=== PATIENT | female | born 1985 | race Caucasian/White ===

== ENCOUNTER 2019-02-24 00:21 | Inpatient (IN) ==
[2019-02-24] MEDS ORDERED: IOPAMIDOL 100 ML BOTTLE IV ONE (00:22)
[2019-02-24] MEDS ORDERED: 0.9 % SODIUM CHLORIDE 1,000 ML IV ONE ×2 (00:54→07:35)
[2019-02-24] MEDS ORDERED: ONDANSETRON 4 MG/2 ML VIAL IV ONE ×2 (00:54→02:11)
--- NOTE | 2019-02-24 00:57 | Emergency Department Note ---
Abdominal Pain HPI - General Chief Complaint: Abdominal Pain Stated Complaint: THinks has bowel obstruction Time Seen by Provider: 02/24/19 00:40 Source: patient Mode of arrival: ambulatory Limitations: no limitations - History of Present Illness HPI Narrative: 34-year-old female comes in for a 3-hour history of severe belly pain. She has a history of bowel obstructions and has an ileostomy pouch. Is been putting out liquid stool such that she had to empty it 3 times today. This feels like similar bowel obstruction she has had in the past. She has had multiple belly surgeries. No fever but significant nausea vomiting. She typically gets treated at [facility] where she lives; she is just here for a . She called up to attending physician of the surgical service hot stone setter there and had me talk to him on the cell phone-he verified that she does indeed get bowel obstructions. We briefly discussed initial work-up. Her regular surgeon is Dr. Duc Aden (sp?) - Related Data Allergies Allergy/AdvReac Type Severity Reaction Status Date / Time No Known Drug Allergies Allergy Verified 02/24/19 02:21 Review of Systems All systems ED: reviewed and negative except as stated. Abdominal Pain PMH - Past Medical History Attestation: Yes: The following information was validated with the patient. Medical history: Reports: other (small bowel obstructions, hirschsprung) Surgical history ED: Reports: colostomy, hysterectomy - Social History Smoking status: Never smoker Physical Exam Irritable and frustrated. Dry heaving here. Normocephalic atraumatic. Conjunctive are clear sclerae white nonicteric. No nasal discharge or congestion. Oropharynx with dry buccal mucosa. Neck is supple without lymphadenopathy or thyromegaly. Heart is regular rate and rhythm no murmur. Lungs are clear to auscultation bilaterally without wheezes rales rhonchi or respiratory distress. Abdomen is soft obese tender with scarring noted. Ileostomy bag with liquid stool in it. No pedal edema. +2 radial pulse. Alert oriented Limitations: no limitations Course Vital Signs Temperature 97.5 F 02/24/19 00:22 Pulse Rate 115 H 02/24/19 00:22 Respiratory Rate 14 02/24/19 00:22 Blood Pressure 129/87 02/24/19 00:22 Pulse Oximetry (%) 96 02/24/19 00:22 Temperature 97.5 F 02/24/19 00:22 Pulse Rate 115 H 02/24/19 00:22 Respiratory Rate 14 02/24/19 00:22 Blood Pressure 129/87 02/24/19 00:22 Pulse Oximetry (%) 96 02/24/19 00:22 Abdominal Pain - Lab Data Lab results reviewed: Yes I reviewed the patient's lab results. Result diagrams: 02/24/19 01:07 PST 02/24/19 01:07 PST Lab Results 02/24/19 02/24/19 02/24/19 Range/Units 01:07 PST 01:07 PST 01:07 PST WBC 14.9 H (4.5-11.0) K/mcL RBC 5.61 H (4.00-5.20) M/mcL Hgb 15.9 H (12.0-15.0) g/dL Hct 47.4 (36.0-48.0) % POC Hct 50.0 H (36.0-48.0) % MCV 84.4 (80.0-100.0) fL MCH 28.4 (26.0-34.0) pg MCHC 33.6 (31.0-36.0) g/dL RDW 13.3 (11.5-14.5) % Plt Count 285 (140-440) K/mcL MPV 9.3 (7.4-10.4) fL Gran % 85.2 H (38.0-78.0) % Lymph % (Auto) 10.0 L (15.5-49.0) % Harlan % (Auto) 3.7 (1.0-12.0) % Eos % (Auto) 1.0 (0.0-7.0) % Baso % (Auto) 0.1 (0.0-2.0) % Gran # 12.7 H (1.8-8.0) K/mcL Lymph # (Auto) 1.5 (1.5-4.8) K/mcL Harlan # (Auto) 0.6 (0.1-0.9) K/mcL Eos # (Auto) 0.2 (0.0-0.7) K/mcL Baso # (Auto) 0 (0.0-0.3) K/mcL VBG Lactic Acid 2.8 H (0.5-2.0) mmol/L POC Sodium 137 (133-145) mmol/L Sodium 139 (133-145) mmol/L POC Potassium 4.1 (3.3-5.1) mmol/L Potassium 4.2 (3.3-5.1) mmol/L POC Chloride 103 (96-108) mmol/L Chloride 97 (96-108) mmol/L Carbon Dioxide 19 L (22-30) mmol/L POC Total CO2 24 (22-30) mmol/L Anion Gap 23.0 H (8-16) POC BUN 23 H (6-20) mg/dl BUN 17 (6-20) mg/dl Creatinine 0.9 (0.6-1.1) mg/dl POC Creatinine 0.8 (0.6-1.1) mg/dl GFR Calculation 83 Glucose 106 H (70-105) mg/dL POC Glucose 105 (70-105) mg/dL Calcium 10.3 (8.6-10.4) mg/dl POC WB Ioniz Calcium 1.12 L (1.16-1.32) mmol/L Total Bilirubin 1.1 H (0.0-1.0) mg/dL AST 35 (0-37) U/l ALT 36 (0-40) U/l Alkaline Phosphatase 49 (39-117) U/L Total Protein 8.8 H (5.9-8.4) gm/dL Albumin 4.9 (3.2-5.2) gm/dL Globulin 3.9 H (2.2-3.7) gm/dL Albumin/Globulin Ratio 1.3 (1.0-2.3) Lipase 21 (7-60) U/L - Radiology Data Radiology results reviewed: Yes I reviewed the patient's radiology results. X-ray of the abdomen shows no air-fluid levels-collapsed bowel perhaps CT scan of the abdomen and pelvis shows low-grade Partial small bowel obstruction With dilated fluid-filled loops of small bowel-I discussed this with Dr. Jim Chamorro radiologist who also noted the patient has a possible ovarian mass as well Disposition Pt seen by [facility]ISTR[facility]/PA only: No Clinical Impression: Small bowel obstruction, Ovarian mass Summary: Likely small bowel obstruction she has had history of multiple of these. Treat her pain nausea start IV fluids. X-ray is unrevealing. Will order CT scan and start NG tube. She was feeling better after getting medicine in the NG tube CT scan of the abdomen and pelvis with contrast shows partial small bowel obstruction low-grade. She had been getting Dilaudid for pain but every time she got Dilaudid made her nausea worse. She previously had 2 doses of Zofran. We will give her Compazine I discussed her case with Dr. Kaveh Matthews who agreed to accept the patient for further care and evaluation when we have a bed Disposition: Xfer As Inpt ([facility]) Condition: Fair
[2019-02-24 01:14] LABS: POC Blood Urea Nitrogen 23 mg/dl (6-20); POC CO2 24 mmol/L (22-30); POC Calcium, Ionized 1.12 mmol/L (1.16-1.32); POC Chloride 103 mmol/L (96-108); POC Creatinine 0.8 mg/dl (0.6-1.1); POC Glucose, Random 105 mg/dL (70-105); POC Potassium 4.1 mmol/L (3.3-5.1); POC Sodium 137 mmol/L (133-145)
[2019-02-24] MEDS: HYDROmorphone 2 MG/ML VIAL IV PRN ×8 (01:29→23:40)
[2019-02-24 01:38] LABS: Basophils # (Auto) 0 K/mcL (0.0-0.3); Basophils % (Auto) 0.1 % (0.0-2.0); Eosinophils # (Auto) 0.2 K/mcL (0.0-0.7); Granulocytes % (Auto) 85.2 % (38.0-78.0); Hematocrit 47.4 % (36.0-48.0); Hemoglobin 15.9 g/dL (12.0-15.0); Lymphocytes # (Auto) 1.5 K/mcL (1.5-4.8); Mean Cell Volume 84.4 fL (80.0-100.0); Mean Corpuscular HGB Conc 33.6 g/dL (31.0-36.0); Mean Platelet Volume 9.3 fL (7.4-10.4); Monocytes # (Auto) 0.6 K/mcL (0.1-0.9); Monocytes % (Auto) 3.7 % (1.0-12.0); Platelet Count 285 K/mcL (140-440); RBC 5.61 M/mcL (4.00-5.20); Red Cell Distribution Width 13.3 % (11.5-14.5); WBC 14.9 K/mcL (4.5-11.0)
[2019-02-24 02:00] LABS: ALT/SGPT 36 U/l (0-40); AST/SGOT 35 U/l (0-37); Albumin 4.9 gm/dL (3.2-5.2); Albumin/Globulin Ratio 1.3 (1.0-2.3); Alkaline Phosphatase 49 U/L (39-117); Bilirubin,Total 1.1 mg/dL (0.0-1.0); Blood Urea Nitrogen 17 mg/dl (6-20); Calcium 10.3 mg/dl (8.6-10.4); Carbon Dioxide 19 mmol/L (22-30); Chloride 97 mmol/L (96-108); Globulin 3.9 gm/dL (2.2-3.7); Glomerular Filtration Rate 83; Glucose 106 mg/dL (70-105)
[2019-02-24] MEDS ORDERED: PROCHLORPERAZINE 10 MG/2 ML VIAL IV ONE (05:53)
--- NOTE | 2019-02-24 07:20 | XRay Report ---
CLINICAL INFORMATION: Abdominal pain. Patient states that she has a bowel obstruction TECHNIQUE: Supine and upright abdomen COMPARISON: Previous examination dated 06/23/2009 FINDINGS: There appears to be a left-sided stoma. Abdomen is essentially gasless. No distended gas-filled small bowel. No evidence for mechanical small bowel obstruction. There is no pneumoperitoneum. No biliary or portal venous gas. No pneumatosis. There are surgical clips in the right upper abdominal quadrant consistent with previous cholecystectomy IMPRESSION: 1. Gasless abdomen. No plain film evidence for mechanical small bowel obstruction 2. No acute or focal abnormality Interpreted and Authenticated by: Jim Chamorro 02/24/19
[2019-02-24] MEDS ORDERED: HYDROmorphone 2 MG/ML VIAL IV PRN (07:34)
[2019-02-24] MEDS ORDERED: METOCLOPRAMIDE 10 MG/2 ML VIAL IV ONE (07:34)
[2019-02-24] MEDS ORDERED: NALOXONE HCL 0.4 MG/ML VIAL IV PRN (07:35)
[2019-02-24] MEDS ORDERED: PROMETHAZINE 25 MG/ML VIAL IM PRN (07:35)
--- NOTE | 2019-02-24 07:51 | Cat Scan Report ---
CLINICAL INFORMATION: Previous surgery. The patient states that she has a bowel obstruction COMPARISON: Plain film examination dated 02/24/2019 TECHNIQUE: Axial images were obtained through the abdomen and pelvis. Sagittally and coronally reformatted images. 80 mL Isovue 370 injected intravenously. Oral contrast material was not administered FINDINGS: This patient has undergone previous colectomy and hysterectomy. Prior examinations are in [place] and not currently available. The reason for this patient's previous hysterectomy and colectomy are not known. This patient is only visiting this area Lung bases:Negative. No pulmonary parenchymal infiltrate or mass. There is no pleural fluid. No pericardial fluid Liver:Negative. No focal intrahepatic abnormality. Liver contour is smooth. There is no ascites Gallbladder, billary:Surgical clips in gallbladder fossa consistent with previous cholecystectomy. No dilated bile ducts Spleen:Negative. No splenomegaly. Normal enhancement of splenic and portal veins Pancreas:Negative. No pancreatic mass. No peripancreatic abnormality Adrenal glands:Negative Kidneys, ureters, bladder:Kidneys are negative. No hydronephrosis. No solid or cystic renal mass. There is no hydroureter. No obstructing or nonobstructing calculi. No bladder stones. Gastrointestinal:Previous colectomy. The reason for colectomy in this young patient is not known There is a left lower quadrant ostomy. Jejunum is mildly prominent and may be adherent to the anterior abdominal wall. There is no high-grade mechanical small bowel obstruction. Mild partial obstruction is possible. There is no closed-loop obstruction. No evidence for bowel ischemia.. There is an esophagogastric tube in the stomach Vascular:Normal abdominal aorta. No abdominal aortic aneurysm. Normal enhancement of superior mesenteric artery, celiac trunk, and inferior mesenteric artery Lymphatic:No retroperitoneal, para-aortic adenopathy. There is no pathologic mesenteric adenopathy. Small mesenteric lymph nodes are nonspecific Mesentery, peritoneum:No free intraperitoneal fluid. No intra-abdominal abscess. No pneumoperitoneum Reproductive:Previous hysterectomy. It is unknown whether this patient had an oophorectomy. There is a pelvic mass. This is predominantly cystic but is not a simple cyst. There are septations within this. This multicystic mass measures 7.0 x 7.5 x 5.5 cm. There is no free pelvic fluid. There is no pathologic adenopathy. This is probably of ovarian origin. Comparison with prior examinations is recommended. This may be a mucinous cystadenoma or adenocarcinoma. If this is a new lesion pelvic MRI scan may be helpful. It is not certain that this lesion is of ovarian origin. Postoperative septated seroma or lymphocele are possible Musculoskeletal:No lumbar compression fractures. Sacrum and pelvis are negative. No fracture. No lytic lesion. This examination was initially interpreted by [facility] IMPRESSION: 1. Previous colectomy. No high-grade mechanical small bowel obstruction. Mild partial obstruction is possible. There is small bowel which is adherent to the anterior abdominal wall and this may be secondary to postoperative adhesions 2. Septated cystic pelvic mass. This may be of ovarian origin. Comparison with previous examinations and patient's history are necessary. MRI scan may be performed as above The exam was performed using radiation dose optimization techniques including, but not limited to, automated exposure control, adjustment of the mA and/or kV according to patient size and use of iterative reconstruction technique. Interpreted and Authenticated by: Jim Chamorro 02/24/19
[2019-02-24 11:03] LABS: Appearance,Urine CLEAR; Bacteria,Urine 0 /hpf (0); Bilirubin,Urine NEG (NEG); Color,Urine YELLOW; Glucose,Urine (UA) NEGATIVE (NEG); Ketones,Urine NEG (NEG); Leukocyte Esterase,Urine NEG /uL (NEG); Mucus,Urine FEW /hpf (0); Nitrate,Urine NEG (NEG); Protein,Urine 30 mg/dL (NEG); Specific Gravity,Urine > 1.060 (1.000-1.035); Urine Amorphous Crystals FEW /hpf (0); Urine Blood 0.2 mg/dL (<0.03); Urine RBC 11 /hpf (0-1); Urine Squamous Epithelial Cell 3 /hpf (0-4); Urine WBC 5 /hpf (0-4); Urobilinogen,Urine NEG (NEG)
[2019-02-24 11:04] LABS: Culture Indicated,Urine NO
[2019-02-24] MEDS: 0.9 % SODIUM CHLORIDE 1,000 ML IV SCH ×2 (11:37→21:30)
[2019-02-24] MEDS: ONDANSETRON 4 MG/2 ML VIAL IV PRN ×3 (11:52→21:25)
[2019-02-24] MEDS: diphenhydrAMINE 50 MG/ML VIAL IV PRN ×2 (12:47→18:48)
[2019-02-24] MEDS ORDERED: ALPRAZolam 0.5 MG TABLET PO PRN (12:53)
[2019-02-24] MEDS ORDERED: ACETAMINOPHEN 1,000 MG in PREMIX 1 BAG IV SCH (13:00)
--- NOTE | 2019-02-24 13:03 | General Surg History&Physical ---
History of Present Illness Patient information: Note initiated : 02/24/19 at 1:01 pm Service Date, if different from initiated Date: [] Patient: Marilu Jo 34 y/o F admitted on 02/24/19 for THinks has bowel obstruction. Chief Complaint: [] HPI: Ms. Jo is a 34 year old Fadmitted for probable adynamic ileus. 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 Since that time she's had multiple operations. She subsequently had total colectomy. She now has a permanent left lower quadrant ileostomy. She gives a history of having upper abdominal pain with nausea and vomiting multiple times yesterday. She had increased abdominal pressure. Because of this she came to the emergency room. She states that her stoma has continued to work and she has had watery output during this time. She had laparotomy 8 months ago at which time she had a 4 hour lysis. According to her history. She has what sounds like a hostile abdomen. She has a surgeon in [place], who follows her regularly. Patient has been admitted with nasogastric tube. Review of her CT shows slight dilation of mid small bowel but no evidence of complete obstruction. Review of Systems All systems PM: reviewed and no additional remarkable complaints except as stated (negative except as noted above in HPI) Past History Past medical history: History of Hirschsprung's disease Past surgical history: Status post abdominal hysterectomy and right salpingo-oophorectomy. Status post total colectomy with ileostomy Past family history: Mother age 52, without illness. Father age 55 of illness. 4 siblings, all healthy except one sibling with seizure disorder Past social history: Denies tobacco use Denies alcohol use. Denies drug use Medications and Allergies Allergies Allergy/AdvReac Type Severity Reaction Status Date / Time No Known Drug Allergies Allergy Verified 02/24/19 02:21 Exam Temp Pulse Resp BP Pulse Ox 97.5 F 109 H 18 118/70 95 02/24/19 11:55 02/24/19 11:55 02/24/19 11:55 02/24/19 11:55 02/24/19 11:55 - General physical appearance well developed, well nourished, no distress, moderate pain, obese - Eyes PERRL, normal ocular movement - ENT normal pinna, normal nares, normal mucosa, no hearing loss, no congestion - Head Head exam IM: Present: atraumatic, normocephalic - Neck no masses, no bruits, trachea midline, no lymphadenopathy, no venous distension - Cardiovascular Cardiovascular exam IM: Present: normal rate and rhythm, RRR, +S1. Absent: JVD, tachycardia - Respiratory normal expansion, normal respiratory effort, clear to auscultation - Abdomen Abdomen: Present: soft, non tender, bowel sounds. Absent: distended Hernia: Present: none - Genitourinary Present: normal external genitalia - Integumentary Present: no rash, no growths, no abnormal pigmentation - Neurologic Present: normal coordination, normal sensation, other (anxiety related to unresolved grief) - Musculoskeletal Present: normal gait, normal posture - Psychiatric Present: oriented to time, oriented to person, oriented to place, speech is normal, memory intact Assessment and Plan (1) Partial small bowel obstruction Continue nasogastric decompression for today. Start metoclopramide every 6 hours Follow-up abdominal x-ray the morning Status: Acute (2) Adjustment reaction with anxiety and depression Alprazolam 1 mg every 8 hours as needed Status: Acute
[2019-02-24] MEDS: ACETAMINOPHEN 1,000 MG/100 ML BOTTLE IV SCH ×2 (13:35→18:53)
[2019-02-24] MEDS: METOCLOPRAMIDE 10 MG/2 ML VIAL IV SCH ×2 (17:56→23:47)
[2019-02-25] MEDS: ACETAMINOPHEN 1,000 MG/100 ML BOTTLE IV SCH ×4 (00:41→19:37)
[2019-02-25] MEDS: diphenhydrAMINE 50 MG/ML VIAL IV PRN ×4 (00:44→19:35)
[2019-02-25] MEDS: HYDROmorphone 2 MG/ML VIAL IV PRN ×11 (02:27→23:44)
[2019-02-25] MEDS: ONDANSETRON 4 MG/2 ML VIAL IV PRN ×5 (05:03→21:43)
[2019-02-25] MEDS: METOCLOPRAMIDE 10 MG/2 ML VIAL IV SCH ×4 (06:14→23:33)
[2019-02-25 06:31] LABS: Basophils # (Auto) 0 K/mcL (0.0-0.3); Basophils % (Auto) 0.2 % (0.0-2.0); Eosinophils # (Auto) 0.1 K/mcL (0.0-0.7); Eosinophils % (Auto) 1.3 % (0.0-7.0); Granulocytes % (Auto) 73.3 % (38.0-78.0); Hematocrit 40.1 % (36.0-48.0); Hemoglobin 13.3 g/dL (12.0-15.0); Lymphocytes # (Auto) 0.8 K/mcL (1.5-4.8); Mean Cell Volume 85.1 fL (80.0-100.0); Mean Corpuscular HGB Conc 33.2 g/dL (31.0-36.0); Mean Platelet Volume 9.4 fL (7.4-10.4); Monocytes # (Auto) 0.6 K/mcL (0.1-0.9); Monocytes % (Auto) 10.2 % (1.0-12.0); Platelet Count 218 K/mcL (140-440); RBC 4.71 M/mcL (4.00-5.20); Red Cell Distribution Width 12.9 % (11.5-14.5); WBC 5.5 K/mcL (4.5-11.0)
[2019-02-25 06:52] LABS: ALT/SGPT 30 U/l (0-40); AST/SGOT 23 U/l (0-37); Albumin 4.3 gm/dL (3.2-5.2); Albumin/Globulin Ratio 1.3 (1.0-2.3); Alkaline Phosphatase 46 U/L (39-117); Bilirubin,Direct 0.2 mg/dL (0.0-0.3); Blood Urea Nitrogen 22 mg/dl (6-20); Calcium 8.9 mg/dl (8.6-10.4); Carbon Dioxide 23 mmol/L (22-30); Chloride 99 mmol/L (96-108); Globulin 3.3 gm/dL (2.2-3.7); Glomerular Filtration Rate 83; Glucose 101 mg/dL (70-105); Lactate Dehydrogenase 219 U/L (94-250); Phosphorous 3.7 mg/dL (2.7-4.5); Triglycerides 159 mg/dl (<150); Uric Acid 5.7 mg/dL (2.5-8.0)
--- NOTE | 2019-02-25 08:07 | XRay Report ---
CLINICAL INFORMATION: FOLLOW -UP OF SMALL BOWEL OBSTRUCTION COMPARISON: 02/24/2019 FINDINGS: NG tube overlies the gastric antrum. The stomach, small and large bowel are gasless. No free air, soft tissue mass or organomegaly. No pathologic calcification. IMPRESSION: Gasless abdomen which likely indicates complete decompression. It could also represent multiple fluid-filled loops of bowel seen with obstruction. Consider: Small bowel follow-through Interpreted and Authenticated by: Jim Ibanez 02/25/19
[2019-02-25] MEDS: 0.9 % SODIUM CHLORIDE 1,000 ML IV SCH ×2 (08:35→17:29)
[2019-02-25] MEDS ORDERED: FLU VACC QS2019-20(6MOS UP)/PF 60 MCG/0.5 ML SYRINGE IM ONE ×2 (10:00→11:56)
--- NOTE | 2019-02-25 13:48 | General Surgery Progress Note ---
Subjective Patient reports: feels better, pain is less, flatus, bowel movement, afebrile (she is) Narrative: Note initiated : 02/25/19 at 1:46 pm Service Date, if different from initiated Date: [] Patient: Marilu Jo 34 y/o F admitted on 02/24/19 for THinks has bowel obstruction. Chief Complaint: [patient appears to be clinically stable. She has had output through her stoma. White blood count 5.5, hemoglobin 13.3, hematocrit 40.1, BUN 22. Abdominal x-rays reveals no dilated loops of small bowel.] Objective Temp Pulse Resp BP Pulse Ox 98.0 F 67 14 125/65 95 02/25/19 12:00 02/25/19 12:00 02/25/19 12:00 02/25/19 12:00 02/25/19 12:00 - Additional Data Intake & Output - Last 24 hours: Intake & Output 02/23/19 02/24/19 02/25/19 02/26/19 06:59 05:59 05:59 05:59 Intake Total 3278 1280 Output Total 3300 1000 Balance -22 280 Weight 236 lb - General physical appearance well developed, well nourished, no distress - Eyes PERRL, normal ocular movement - ENT normal pinna, normal nares, normal mucosa, no hearing loss, no congestion - Neck no masses, no bruits, trachea midline, no lymphadenopathy, no venous distension - Respiratory normal expansion, normal respiratory effort, clear to auscultation - Cardiovascular Cardiovascular exam: Present: normal rate and rhythm, RRR, +S1, +S2. Absent: JVD, tachycardia - Abdomen non tender, bowel sounds (present), surgical scars (none), masses (none) - Integumentary no rash, no growths, no abnormal pigmentation - Neurologic normal coordination, normal sensation - Musculoskeletal normal gait, normal posture - Psychiatric oriented to time, oriented to person, oriented to place, speech is normal, memory intact - Labs 02/25/19 04:50 02/25/19 04:50 Diabetes panel 02/25/19 Range/Units 04:50 Sodium 136 (133-145) mmol/L Potassium 3.7 (3.3-5.1) mmol/L Chloride 99 (96-108) mmol/L Carbon Dioxide 23 (22-30) mmol/L BUN 22 H (6-20) mg/dl Creatinine 0.9 (0.6-1.1) mg/dl Glucose 101 (70-105) mg/dL Calcium 8.9 (8.6-10.4) mg/dl AST 23 (0-37) U/l ALT 30 (0-40) U/l Alkaline Phosphatase 46 (39-117) U/L Total Protein 7.6 (5.9-8.4) gm/dL Albumin 4.3 (3.2-5.2) gm/dL Triglycerides 159 H (<150) mg/dl Calcium panel 02/25/19 Range/Units 04:50 Calcium 8.9 (8.6-10.4) mg/dl Phosphorus 3.7 (2.7-4.5) mg/dL Albumin 4.3 (3.2-5.2) gm/dL Pituitary panel 02/25/19 Range/Units 04:50 Sodium 136 (133-145) mmol/L Potassium 3.7 (3.3-5.1) mmol/L Chloride 99 (96-108) mmol/L Carbon Dioxide 23 (22-30) mmol/L BUN 22 H (6-20) mg/dl Creatinine 0.9 (0.6-1.1) mg/dl Glucose 101 (70-105) mg/dL Calcium 8.9 (8.6-10.4) mg/dl Adrenal panel 02/25/19 Range/Units 04:50 Sodium 136 (133-145) mmol/L Potassium 3.7 (3.3-5.1) mmol/L Chloride 99 (96-108) mmol/L Carbon Dioxide 23 (22-30) mmol/L BUN 22 H (6-20) mg/dl Creatinine 0.9 (0.6-1.1) mg/dl Glucose 101 (70-105) mg/dL Calcium 8.9 (8.6-10.4) mg/dl Total Bilirubin 1.0 (0.0-1.0) mg/dL AST 23 (0-37) U/l ALT 30 (0-40) U/l Alkaline Phosphatase 46 (39-117) U/L Total Protein 7.6 (5.9-8.4) gm/dL Albumin 4.3 (3.2-5.2) gm/dL Assessment and Plan (1) Partial small bowel obstruction Status: Acute Assessment and plan: Will clamp nasogastric tube. Small bowel follow-through to be done as soon as possible Current Visit: Yes (2) Adjustment reaction with anxiety and depression Status: Acute Assessment and plan: Restart home medications Current Visit: Yes - Time Spent With Patient Total time spent is greater than 50% in coordination of care (as documented) at patient's floor/unit and/or counseling patient:
[2019-02-25] MEDS ORDERED: LORazepam 2 MG/ML VIAL IV PRN (15:19)
--- NOTE | 2019-02-25 16:10 | XRay Report ---
CLINICAL INFORMATION: Gasless abdomen. Abdominal pain evaluate for small bowel obstruction. History of total colectomy and ileostomy TECHNIQUE: Following crew manager film, 1 cm contrast was administered via NG tube and serial filming was obtained over the abdomen and pelvis FINDINGS: The stomach, duodenum, jejunum and residual ileum are normal in contour and caliber with thin uniform plicae circulares folds. There is no evidence of obstruction or other pathology. IMPRESSION: Normal stomach and small bowel Interpreted and Authenticated by: Jim Ibanez 02/25/19
[2019-02-26] MEDS: diphenhydrAMINE 50 MG/ML VIAL IV PRN ×3 (01:33→13:36)
[2019-02-26] MEDS: ACETAMINOPHEN 1,000 MG/100 ML BOTTLE IV SCH ×3 (01:33→12:47)
[2019-02-26] MEDS: HYDROmorphone 2 MG/ML VIAL IV PRN ×7 (01:38→14:49)
[2019-02-26] MEDS: 0.9 % SODIUM CHLORIDE 1,000 ML IV SCH ×2 (04:09→14:52)
[2019-02-26] MEDS: ONDANSETRON 4 MG/2 ML VIAL IV PRN ×2 (04:15→09:17)
[2019-02-26] MEDS: METOCLOPRAMIDE 10 MG/2 ML VIAL IV SCH ×2 (06:18→11:46)
[2019-02-26 06:57] LABS: Basophils # (Auto) 0 K/mcL (0.0-0.3); Basophils % (Auto) 0.4 % (0.0-2.0); Eosinophils # (Auto) 0.1 K/mcL (0.0-0.7); Eosinophils % (Auto) 2.3 % (0.0-7.0); Hematocrit 39.2 % (36.0-48.0); Lymphocytes # (Auto) 1.2 K/mcL (1.5-4.8); Lymphocytes % (Auto) 22.4 % (15.5-49.0); Mean Cell Volume 84.9 fL (80.0-100.0); Mean Corpuscular HGB Conc 33.1 g/dL (31.0-36.0); Mean Platelet Volume 9.1 fL (7.4-10.4); Monocytes # (Auto) 0.6 K/mcL (0.1-0.9); Monocytes % (Auto) 10.9 % (1.0-12.0); Platelet Count 210 K/mcL (140-440); RBC 4.61 M/mcL (4.00-5.20); Red Cell Distribution Width 12.8 % (11.5-14.5); WBC 5.5 K/mcL (4.5-11.0)
[2019-02-26 07:33] LABS: ALT/SGPT 35 U/l (0-40); AST/SGOT 24 U/l (0-37); Albumin 4.3 gm/dL (3.2-5.2); Albumin/Globulin Ratio 1.4 (1.0-2.3); Alkaline Phosphatase 49 U/L (39-117); Bilirubin,Direct < 0.2 mg/dL (0.0-0.3); Bilirubin,Total 0.7 mg/dL (0.0-1.0); Blood Urea Nitrogen 20 mg/dl (6-20); Calcium 8.8 mg/dl (8.6-10.4); Carbon Dioxide 25 mmol/L (22-30); Chloride 97 mmol/L (96-108); Glomerular Filtration Rate 113; Glucose 86 mg/dL (70-105); Lactate Dehydrogenase 226 U/L (94-250); Phosphorous 3.7 mg/dL (2.7-4.5); Triglycerides 173 mg/dl (<150); Uric Acid 4.7 mg/dL (2.5-8.0)
--- NOTE | 2019-02-26 08:25 | XRay Report ---
CLINICAL INFORMATION: FOLLOW -UP OF SMALL BOWEL OBSTRUCTION COMPARISON: None. FINDINGS: Total colectomy changes acknowledged. The stomach and small bowel are grossly normal. There is no free air, soft tissue mass or organomegaly. The. NG tube now IMPRESSION: Negative Interpreted and Authenticated by: Jim Ibanez 02/26/19
--- NOTE | 2019-02-26 13:04 | Discharge Summary ---
Providers - Providers Patient information: Note initiated : 02/26/19 at 1:01 pm Service Date, if different from initiated Date: [] Patient: Marilu Jo 34 y/o F admitted on 02/24/19 for THinks has bowel obstruction. Chief Complaint: [] Date of admission: 02/24/19 Discharge date: 02/26/19 Attending physician: Kamlesh Matthews Hospitalization Hospital Course: 34-year-old female admitted for probable adynamic ileus with potential for partial small bowel obstruction. 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 She presented with a history of upper abdominal pain nausea and vomiting. When seen in the emergency room. She was in moderate distress from pain. Abdominal exam was relatively benign. There was a gasless abdomen noted on plain film with slight dilation of mid bowel on CT. Patient had nasogastric tubes was continued. She had large volume output, but she also had large volume output through her ileostomy. Because of this, a small bowel follow-through was done on yesterday and this showed rapid transit through her bowel and into her stoma. She has had regular diet and is stable for discharge Discharge diagnosis: partial small bowel obstruction Secondary discharge diagnosis: History of Hirschsprung's disease Reason for admission: abdominal pain, nausea and vomiting Procedures: None Pertinent studies/significant findings: CT of abdomen and pelvis with contrast Small bowel follow-through Exam Temp Pulse Resp BP Pulse Ox 98.8 F 67 16 136/84 95 02/26/19 08:00 02/26/19 08:00 02/26/19 08:00 02/26/19 08:00 02/26/19 08:00 - General physical appearance well developed, well nourished, no distress, obese - Eyes PERRL, normal ocular movement - ENT normal pinna, normal nares, normal mucosa, no hearing loss, no congestion - Head Head exam IM: Present: atraumatic, normocephalic - Neck no masses, no bruits, trachea midline, no lymphadenopathy, no venous distension - Cardiovascular Cardiovascular exam IM: Present: normal rate and rhythm - Respiratory normal expansion, normal respiratory effort, clear to auscultation - Abdomen Abdomen: Present: soft, tender (mild mid abdominal tenderness), bowel sounds, surgical scars (. Healed surgical scars; stoma left lower quadrant functioning) Hernia: Present: none - Genitourinary Present: normal external genitalia - Integumentary Present: no rash, no growths, no abnormal pigmentation - Neurologic Present: normal coordination, normal sensation - Musculoskeletal Present: normal gait, normal posture - Psychiatric Present: oriented to time, oriented to person, oriented to place, speech is normal, memory intact Discharge Plan - Patient/Caregiver Discharge Instructions Activity: increase activity as tolerated Diet: Regular Diet Additional Instructions: Follow-up with your primary physician in your home city Prescriptions: oxyCODONE/APAP [Percocet 5-325 mg] 1 tab PO Q4HP PRN #40 tab PRN Reason: Pain Prescription Printed Ondansetron HCl [Zofran] 4 mg PO Q4-6HP PRN #20 tab PRN Reason: Nausea And Vomiting Transmission Status: Pending to [facility] - Follow up Plan Disposition: Home, Self-Care Prognosis: Good Rehab Potential: Good I certify that the patient requires SNF services.: No Overall status at discharge: patient is back to baseline Pending Studies Resuscitation Status Full Code Diet Regular Diet Start MonFeb 25 155 Diphenhydramine HCl (Benadryl) 25 mg IV Q6HP PRN PRN Reason: Allergic Symptoms Last Admin: 02/26/19 07:23 Dose: 25 mg Documented by: Admin: 02/26/19 01:33 Dose: 25 mg Documented by: Admin: 02/25/19 19:35 Dose: 25 mg Documented by: Admin: 02/25/19 13:32 Dose: 25 mg Documented by: Admin: 02/25/19 07:17 Dose: 25 mg Documented by: Admin: 02/25/19 00:44 Dose: 25 mg Documented by: Admin: 02/24/19 18:48 Dose: 25 mg Documented by: Admin: 02/24/19 12:47 Dose: 25 mg Documented by: LESLIE Hydromorphone HCl (Dilaudid) 1 mg IV Q2HP PRN PRN Reason: PAIN LEVEL > 6 Last Admin: 02/26/19 12:47 Dose: 1 mg Documented by: Admin: 02/26/19 10:53 Dose: 1 mg Documented by: Admin: 02/26/19 08:45 Dose: 1 mg Documented by: [email or web address] Admin: 02/26/19 06:35 Dose: 1 mg Documented by: Admin: 02/26/19 04:15 Dose: 1 mg Documented by: Admin: 02/26/19 01:38 Dose: 1 mg Documented by: Admin: 02/25/19 23:44 Dose: 1 mg Documented by: Admin: 02/25/19 21:44 Dose: 1 mg Documented by: Admin: 02/25/19 19:28 Dose: 1 mg Documented by: Admin: 02/25/19 17:30 Dose: 1 mg Documented by: Admin: 02/25/19 15:33 Dose: 1 mg Documented by: Admin: 02/25/19 13:31 Dose: 1 mg Documented by: Admin: 02/25/19 12:21 Dose: 1 mg Documented by: Admin: 02/25/19 09:50 Dose: 1 mg Documented by: [email or web address] Admin: 02/25/19 07:18 Dose: 1 mg Documented by: Admin: 02/25/19 05:03 Dose: 1 mg Documented by: Admin: 02/25/19 02:27 Dose: 1 mg Documented by: Admin: 02/24/19 23:40 Dose: 1 mg Documented by: Admin: 02/24/19 21:27 Dose: 1 mg Documented by: Admin: 02/24/19 18:51 Dose: 1 mg Documented by: Admin: 02/24/19 16:10 Dose: 1 mg Documented by: Admin: 02/24/19 13:49 Dose: 1 mg Documented by: LESLIE Sodium Chloride (Sodium Chloride 0.9%) 1,000 mls @ 100 mls/hr IV .Q10H CHAVA Last Admin: 02/26/19 04:09 Dose: 100 mls/hr Documented by: Infusion: 02/26/19 03:29 Dose: 100 mls/hr Documented by: Admin: 02/25/19 17:29 Dose: 100 mls/hr Documented by: Infusion: 02/25/19 17:29 Dose: 100 mls/hr Documented by: Admin: 02/25/19 08:35 Dose: 100 mls/hr Documented by: Infusion: 02/25/19 07:30 Dose: 100 mls/hr Documented by: Admin: 02/24/19 21:30 Dose: 100 mls/hr Documented by: Infusion: 02/24/19 21:30 Dose: 100 mls/hr Documented by: [email or web address] Admin: 02/24/19 11:37 Dose: 100 mls/hr Documented by: NATHAN Acetaminophen (Ofirmev) 1,000 mg in 100 mls @ 200 mls/hr IV Q6H CHAVA Last Admin: 02/26/19 12:47 Dose: 200 mls/hr Documented by: Infusion: 02/26/19 09:54 Dose: 0 mls/hr Documented by: Admin: 02/26/19 08:50 Dose: 200 mls/hr Documented by: Infusion: 02/26/19 02:35 Dose: 0 mls/hr Documented by: Admin: 02/26/19 01:33 Dose: 200 mls/hr Documented by: Infusion: 02/25/19 20:07 Dose: 200 mls/hr Documented by: Admin: 02/25/19 19:37 Dose: 200 mls/hr Documented by: Infusion: 02/25/19 14:03 Dose: 200 mls/hr Documented by: Admin: 02/25/19 13:33 Dose: 200 mls/hr Documented by: Infusion: 02/25/19 07:46 Dose: 200 mls/hr Documented by: Admin: 02/25/19 07:16 Dose: 200 mls/hr Documented by: Infusion: 02/25/19 01:11 Dose: 200 mls/hr Documented by: Admin: 02/25/19 00:41 Dose: 200 mls/hr Documented by: [email or web address] Infusion: 02/24/19 19:23 Dose: 200 mls/hr Documented by: [email or web address] Admin: 02/24/19 18:53 Dose: 200 mls/hr Documented by: [email or web address] Infusion: 02/24/19 14:14 Dose: 200 mls/hr Documented by: Admin: 02/24/19 13:35 Dose: 200 mls/hr Documented by: LESLIE Metoclopramide HCl (Reglan) 10 mg IV Q6 CHAVA Last Admin: 02/26/19 11:46 Dose: 10 mg Documented by: Admin: 02/26/19 06:18 Dose: 10 mg Documented by: Admin: 02/25/19 23:33 Dose: 10 mg Documented by: Admin: 02/25/19 17:30 Dose: 10 mg Documented by: Admin: 02/25/19 12:20 Dose: 10 mg Documented by: Admin: 02/25/19 06:14 Dose: 10 mg Documented by: Admin: 02/24/19 23:47 Dose: 10 mg Documented by: Admin: 02/24/19 17:56 Dose: 10 mg Documented by: LESLIE Ondansetron HCl (Zofran) 4 mg IV Q4HP PRN PRN Reason: Nausea And Vomiting Last Admin: 02/26/19 09:17 Dose: 4 mg Documented by: Admin: 02/26/19 04:15 Dose: 4 mg Documented by: Admin: 02/25/19 21:43 Dose: 4 mg Documented by: Admin: 02/25/19 17:30 Dose: 4 mg Documented by: Admin: 02/25/19 13:33 Dose: 4 mg Documented by: Admin: 02/25/19 09:58 Dose: 4 mg Documented by: Admin: 02/25/19 05:03 Dose: 4 mg Documented by: Admin: 02/24/19 21:25 Dose: 4 mg Documented by: Admin: 02/24/19 16:10 Dose: 4 mg Documented by: Admin: 02/24/19 11:52 Dose: 4 mg Documented by: NATHAN Shift Summary 02/26/19 02:56 Shift Summary by Keesha Mercado Pt having less watery stools in iliostomy; more like normal pt stated. Up ad kel, voiding well; takes care of ostomy w/home supplies. Taking pain meds about every 2 hours. Will ask for benedryl and zofran when it's due as well. Tolerating reg diet w/o problems. Will d/c home today. Initialized on 02/26/19 02:56 - END OF NOTE
== END 2019-02-26 15:10 | disposition home or self-care (01) | DRG 389 ==
LOC: MEDSUR 00:21 → ED 00:21 → OBSVTOIN 07:34 → MEDSUR 11:19
PROVIDERS: ADMIT Family Medicine Adult Medicine; ATTEND Family Medicine Adult Medicine